=== PATIENT | male | born 1990 | race Two or more races ===

== ENCOUNTER 2025-04-16 03:20 | Emergency (ER) | payer OTHER ==
[~2025-04-16] VITALS: Ht 182.9 cm; Wt 95.0 kg
--- NOTE | 2025-04-16 03:45 | ED.PDOC ---
History of Present Illness HPI Comments 34 y/o M, with a history of HTN and alcohol abuse, is BIBA for c/o palpitations and generalized tremors. Per EMS report, patient called after waking up at around 0100, this morning, with symptoms following a 2x day alcohol binge (last drink at 2200, yesterday). Vitals were noted to have been within normal limits and stable, with exception of a systolic blood pressure in the 140-150's range and a blood glucose of 218. Patient denies any auditory or visual hallucinations, urinary symptoms, nausea, vomiting, or further associated symptoms. Time Seen by MD: 03:30 Reviewed Notes: Nurses Notes, Seismic Interpreter Notes, Medications, Allergies Allergies: Coded Allergies: NO KNOWN ALLERGIES (Unverified , 04/16/25) Information Source: Patient, Emergency Med Personnel Mode of Arrival: EMS Severity: Moderate Timing: Hours Duration: Since onset Prehospital treatment: 12 Lead EKG, Accucheck, Transplant Surgeon Past Medical History PAST MEDICAL HISTORY: HTN Past Medical History (Other): ulcerative colitis Surgical History: Denies all surgeries Family History Family History: Unknown Social History Smoker: Non-Smoker Alcohol: Heavy Drugs: Denies Drug Use Lives In: Home All Other Systems: Reviewed and Negative (As per HPI) Physical Exam General Appearance: Mild Distress, Normal HEENT: Normal ENT Inspection, Pharynx Normal, TMs Normal Neck: Full Range of Motion, Non-Tender, Normal, Normal Inspection Respiratory: Chest Non-Tender, Lungs Clear, No Accessory Muscle Use, No Respiratory Distress, Normal Breath Sounds Cardiovascular: No Edema, No JVD, No Murmur, No Gallop, Normal Peripheral Pulses, Regular Rate/Rhythm Breast Exam: Deferred Gastrointestinal: No Organomegaly, Non Tender, No Pulsatile Mass, Normal Bowel Sounds, Soft Genitalia: Deferred Pelvic: Deferred Rectal: Deferred Extremities: No calf tenderness, Normal capillary refill, Normal inspection, Normal range of motion, Non-tender, No pedal edema Musculoskeletal : Apperance: Normal Neurologic: Alert, insurance business analyst II-XII nml as Tested, No Motor Deficits, Normal Mood, No Sensory Deficits, Other (anxious affect, slighty tremulous, smells of alcohol) Cerebellar Function: Normal Reflexes: Normal Skin: Dry, Normal Color, Warm Lymphatic: No Adenopathy Was a procedure done? Was a procedure done?: No EKG EKG : Pulse Rate (adult): 90 [place]: Normal Cardiac Rhythm: NSR Block: None Hypertrophy: None ST: Normal Comments Prolonged QT Differential Dx Considerations may include: Alcohol withdrawals, substance abuse/dependency, delirium tremens, encephalopathy, among others X-Ray, Labs, Meds, VS Vital Signs Date Time Temp Pulse Resp B/P (MAP) Pulse Ox O2 Delivery O2 Flow Rate FiO2 04/16/25 05:25 98 Room Air* 0 21 04/16/25 03:58 98.0 82 16 149/102 (118) 99 98.0 04/16/25 03:45 90 04/16/25 03:33 90 04/16/25 03:20 98.4 100 18 178/110 (132) 98 98.4 Lab Test 04/16/25 03:46 Range/Units White Blood Count 6.6 4.4-10.8 10^3/uL Red Blood Count 4.98 4.5-5.90 10^6/uL Hemoglobin 14.3 13.5-17.5 g/dL Hematocrit 43.1 41.0-53.0 % Mean Corpuscular Volume 86.5 80.0-100.0 fL Mean Corpuscular Hemoglobin 28.6 28.0-32.0 pg Mean Corpuscular Hemoglobin Concent 33.0 32.0-36.0 g/dL Red Cell Distribution Width 17.0 H 11.8-14.3 % Platelet Count 216 140-450 10^3/uL Mean Platelet Volume 8.4 6.9-10.8 fL Neutrophils (%) (Auto) 64.2 37.0-80.0 % Lymphocytes (%) (Auto) 27.8 10.0-50.0 % Monocytes (%) (Auto) 6.5 0.0-12.0 % Eosinophils (%) (Auto) 0.7 0.0-7.0 % Basophils (%) (Auto) 0.8 0.0-2.0 % Neutrophils # (Auto) 4.2 1.6-8.6 10 ^3/uL Lymphocytes # (Auto) 1.8 0.4-5.4 10 ^3/uL Monocytes # (Auto) 0.4 0-1.3 10 ^3/uL Eosinophils # (Auto) 0 0-0.8 10 ^3/uL Basophils # (Auto) 0 0-0.2 10 ^3/uL Nucleated Red Blood Cells 0.1 % Sodium Level 139 136-145 mmol/L Potassium Level 2.9 L 3.5-5.1 mmol/L Chloride Level 102 98-107 mmol/L Carbon Dioxide Level 20 20-31 mmol/L Anion Gap 17 H 5-15 Blood Urea Nitrogen 6 L 9-23 mg/dL Creatinine 0.92 0.700-1.30 mg/dL Glomerular Filtration Rate Calc 111 >90 mL/min BUN/Creatinine Ratio 6.5 L 10.0-20.0 Serum Glucose 211 H 74-106 mg/dL Calcium Level 9.8 8.7-10.4 mg/dL Magnesium Level 1.6 1.6-2.6 mg/dL Total Bilirubin 0.6 0.2-1.0 mg/dL Aspartate Amino Transferase (AST) 109 H <34 U/L Alanine Aminotransferase (ALT) 141 H 7-40 U/L Alkaline Phosphatase 207 H 46-116 U/L Total Protein 8.3 H 5.7-8.2 g/dL Albumin 4.6 3.2-4.8 g/dL Salicylates Level < 3.0 -30 mg/dL Acetaminophen Level < 2.0 L 10.0-20.0 UG/ML Plasma/Serum Blood Alcohol 64.2 H <10 mg/dL Current Medications Medications (Trade) Dose Ordered Sig/Lenora Route Start Time Stop Time Status Last Admin Sodium Chloride 1,000 ml @ 1,000 mls/hr Q1H ONCE IVB 04/16/25 03:45 04/16/25 04:44 DC 04/16/25 03:58 Lorazepam (Ativan Inj) 1 mg ONCE ONCE IV 04/16/25 03:45 04/16/25 03:46 DC 04/16/25 03:55 Potassium Chloride (Klor-Con Tablet) 40 meq ONCE ONCE PO 04/16/25 05:15 04/16/25 05:16 DC 04/16/25 05:20 Ondansetron HCl (Zofran) 4 mg ONCE ONCE IV 04/16/25 05:30 04/16/25 05:31 DC 04/16/25 05:22 Time of 1ST Reevaluation: 04:00 Reevaluation 1ST: Unchanged Patient Education/Counseling: Treatment, Other (ED observation ) Family Education/Counseling: No Family Present Departure 1 Departure Time of Disposition: 05:30 Impression: Primary Impression: Alcohol withdrawal Additional Impression: Hypokalemia Disposition: 01 HOME / SELF CARE / HOMELESS Condition: Stable Discharged With: Self Critical Care Note Critical Care Time?: No Stability Stability form required: No Heart Score Heart Score: Heart Score Response (Comments) Value History N/A 0 EKG N/A 0 Age N/A 0 Risk Factors N/A 0 Troponin N/A 0 Total 0 I personally scribed for ALEXEY HART MD ([email or web address]) on 04/16/25 at 03:45. Electronically submitted by Loy Lopez [email or web address]). ALEXEY HART MD Apr 16, 2025 03:45
[2025-04-16] MEDS: LORazepam 2MG/ML-1ML VIAL IV ONE (03:55)
[2025-04-16 03:56] LABS: Basophils # (auto) 0 10 ^3/uL (0-0.2); Basophils % (auto) 0.8 % (0.0-2.0); Eosinophils # (auto) 0 10 ^3/uL (0-0.8); Eosinophils % (auto) 0.7 % (0.0-7.0); Hematocrit 43.1 % (41.0-53.0); Hemoglobin 14.3 g/dL (13.5-17.5); Lymphocytes # (auto) 1.8 10 ^3/uL (0.4-5.4); Lymphocytes % (auto) 27.8 % (10.0-50.0); Mean Corpuscular Hemoglobin 28.6 pg (28.0-32.0); Mean Corpuscular Volume 86.5 fL (80.0-100.0); Monocytes # (auto) 0.4 10 ^3/uL (0-1.3); Monocytes % (auto) 6.5 % (0.0-12.0); Neutrophils # (auto) 4.2 10 ^3/uL (1.6-8.6); Neutrophils % (auto) 64.2 % (37.0-80.0); Nucleated Red Blood Cells % 0.1 %; Platelet Count (auto) 216 10^3/uL (140-450); Red Blood Cells 4.98 10^6/uL (4.5-5.90); White Blood Cell 6.6 10^3/uL (4.4-10.8)
[2025-04-16 03:58] VITALS: BP 149/102; PULSE 82; RESP 16; TEMP 98
[2025-04-16] MEDS: SODIUM CHLORIDE 0.9% 1,000 ML IVB ONE (03:58)
[2025-04-16 04:13] LABS: Albumin 4.6 g/dL (3.2-4.8); Anion Gap 17 (5-15); BUN/Creatinine Ratio 6.5 (10.0-20.0); Blood Alcohol 64.2 mg/dL (<10); Calcium 9.8 mg/dL (8.7-10.4); Chloride 102 mmol/L (98-107); Sodium 139 mmol/L (136-145)
[2025-04-16 04:14] LABS: Bilirubin, Total 0.6 mg/dL (0.2-1.0)
[2025-04-16 04:15] LABS: Alanine Aminotransferase 141 U/L (7-40); Alkaline Phosphatase 207 U/L (46-116); Aspartate Aminotransferase 109 U/L (<34); Blood Urea Nitrogen 6 mg/dL (9-23); Carbon Dioxide 20 mmol/L (20-31); Glucose 211 mg/dL (74-106); Magnesium 1.6 mg/dL (1.6-2.6); Potassium 2.9 mmol/L (3.5-5.1); Total Protein 8.3 g/dL (5.7-8.2)
[2025-04-16 04:31] LABS: Acetaminophen < 2.0 UG/ML (10.0-20.0); Salicylate < 3.0 mg/dL (-30)
[2025-04-16] MEDS: POTASSIUM CHL 20 Meq TABLET PO ONE (05:20)
[2025-04-16] MEDS: ONDANSETRON HCL 4 MG/2 ML VIAL IV ONE (05:22)
[2025-04-16 05:25] VITALS: O2SAT 98
--- NOTE | 2025-04-16 06:40 | ECG ---
[facility] Test Date: 2025-04-16 Test Time: 03:33:41 Pat Name: DEON APONTE Department: ED Room: Gender: M [employer]: : 1990 Requested By: ALEXEY HART Order Number: [id number] Reading MD: Maurizio Alston Measurements Intervals [place] Rate: 90 P: 0 SC: 0 QRS: -2 QRSD: 102 T: 34 QT: 399 QTc: 489 Interpretive Statements Normal sinus rhythm Inferior infarct, old Prolonged QT interval Electronically Signed On 04-16-2025 17:32:24 PDT by Maurizio Alston Please click the below link to view image of tracing.
== END 2025-04-16 05:49 | disposition home or self-care (01) ==
LOC: ER 03:20 → EDBD 03:20 → ER 05:49
DX: F10.939 Alcohol use, unspecified with withdrawal, unspecified (principal); E87.6 Hypokalemia; I10 Essential (primary) hypertension; Z98.890 Other specified postprocedural states; Y90.9 Presence of alcohol in blood, level not specified
CPT/HCPCS: 36415; 80053; 80320; 80329; 83735; 85025; 93005; 96361; 96374; 96375; 99284; J2060; J2405; J7030